=== PATIENT | male | born 1985 ===

== ENCOUNTER 2024-12-24 00:37 | Emergency (ER) | payer BC, OTHER ==
[~2024-12-24] VITALS: Ht 198.1 cm; Wt 122.5 kg
[2024-12-24] MEDS ORDERED: SULFAMETH/TRIMETH 800/160 MG TABLET ONE (01:30)
[2024-12-24] MEDS: SULFAMETH/TRIMETH 800/160 MG TABLET PO ONE (01:32)
[2024-12-24 01:34] LABS: PLATELET COUNT (AUTO) 157 K/uL (152-348); RED BLOOD CELL COUNT(AUTO) 4.44 MIL/uL (4.06-5.63); RED CELL DISTRIBUTION WIDTH 13.6 % (12.1-16.2); WHITE BLOOD COUNT (AUTO) 6.4 K/uL (3.6-10.2)
[2024-12-24 01:39] LABS: CREATININE 0.7 mg/dL (0.6-1.3); SODIUM SERUM 139.0 mmol/L (136-145); UREA NITROGEN, BLOOD 11.0 mg/dL (7-18)
[2024-12-24 01:44] LABS: ASPARTATE AMINOTRANSFERASE 21.0 U/L (15-37); TOTAL PROTEIN, SERUM 6.6 g/dL (6.4-8.2)
[2024-12-24 02:00] VITALS: BP 124/89
[2024-12-24] MEDS ORDERED: FURO20TA4 PO (02:10)
[2024-12-24] MEDS ORDERED: POTA-194 PO (02:10)
[2024-12-24] MEDS ORDERED: SULF1TAB48 PO (02:10)
[2024-12-24 02:49] VITALS: BP 124/89; TEMP 98; O2SAT 96
== END 2024-12-24 02:49 | disposition home or self-care (01) ==
LOC: ER 01:09
DX: R60.0 Localized edema (principal); F17.210 Nicotine dependence, cigarettes, uncomplicated; F19.10 Other psychoactive substance abuse, uncomplicated; Z79.899 Other long term (current) drug therapy
CPT/HCPCS: 36415; 85025; A4606; A4663